=== PATIENT | male | born 1980 | race Two or more races ===

== ENCOUNTER 2024-07-03 22:25 | Emergency (ER) | payer OTHER ==
[~2024-07-03] VITALS: Ht 175.3 cm; Wt 75.0 kg
--- NOTE | 2024-07-04 01:37 | ED.PDOC ---
SOB-HPI HPI Comments Pt BIBA for cough, fatigue, runny nose and body pain when coughing. Denies ayone sick at home. Denies SOB, dizziness, chest pain,blurred vision. VSS. NKDA. Denies PMH. Last dose of Tylenol 1000mg at 1830. Chief Complaint: Flu like Time Seen by MD: 23:23 Reviewed notes: Nurses Notes, Medications, Allergies Information Source: Patient Mode of Arrival: EMS Past Medical History PAST MEDICAL HISTORY: Denies Surgical History: Denies all surgeries Family History Family History: Reviewed,noncontributory to illness Social History Smoker: Non-Smoker Alcohol: Denies ETOH Use Drugs: Denies Drug Use Constitutional: reports: fever; denies: chills, diaphoresis, fatigue, malaise, sweats, weakness, others EENTM: denies: blurred vision, double vision, ear bleeding, ear discharge, ear drainage, ear pain, ear ringing, eye pain, eye redness, hearing loss, mouth pain, mouth swelling, nasal discharge, nose bleeding, nose congestion, nose pain, photophobia, tearing, throat pain, throat swelling, voice changes, others Respiratory: reports: cough; denies: hemoptysis, orthopnea, SOB at rest, shortness of breath, SOB with excertion, stridor, wheezing, others Cardiovascular: denies: chest pain, dizzy spells, diaphoresis, Dyspnea on exertion, edema, irregular heart beat, left arm pain, lightheadedness, palpitations, PND, syncope, others Gastrointestinal: denies: abdomen distended, abdominal pain, blood streaked bowels, constipated, diarrhea, dysphagia, difficulty swallowing, hematemesis, melena, nausea, poor appetite, poor fluid intake, rectal bleeding, rectal pain, vomiting, others Genitourinary: denies: burning, dysuria, flank pain, frequency, hematuria, incontinence, penile discharge, penile sore, pain, testicle pain, testicle swelling, urgency, others Neurological: denies: dizziness, fainting, headache, left sided numbness, left sided weakness, numbness, paresthesia, pre-existing deficit, right sided numbness, right sided weakness, seizure, speech problems, tingling, tremors, weakness, others Musculoskeletal: reports: back pain (Pain with coughing); denies: gout, joint pain, joint swelling, muscle pain, muscle stiffness, neck pain, others Integumetry: denies: bruises, change in color, change in hair/nails, dryness, laceration, lesions, lumps, rash, wounds, others Allergic/Immunocompromised: denies: Difficulty Healing, Frequent Infections, Hives, Itching, others Hematologic/Lymphatic: denies: anemia, blood clots, easy bleeding, easy bruising, swollen glands, others Endocrine: denies: excessive hunger, excessive sweating, excessive thirst, excessive urination, flushing, intolerance to cold, intolerance to heat, unexplained weight gain, unexplained weight loss, others Psychiatric: denies: anxiety, bipolar disorder, depression, hopeless, panic disorder, schizophrenia, sleepless, suicidal, others Physical Exam General Appearance: No Apparent Distress, Normal HEENT: Normal ENT Inspection, Pharynx Normal, TMs Normal Neck: Full Range of Motion, Non-Tender Respiratory: Chest Non-Tender, Decreased Breath Sounds, No Accessory Muscle Use, No Respiratory Distress Cardiovascular: No Edema, No JVD, No Murmur, No Gallop, Normal Peripheral Pulses, Regular Rate/Rhythm Breast Exam: Deferred Gastrointestinal: No Organomegaly, Non Tender, No Pulsatile Mass, Normal Bowel Sounds, Soft Genitalia: Deferred Pelvic: Deferred Rectal: Deferred Extremities: Normal capillary refill, Normal inspection, Normal range of motion, Non-tender, No pedal edema Musculoskeletal : Apperance: Normal Neurologic: Alert, maritime guard II-XII nml as Tested, No Motor Deficits, Normal Affect, Normal Mood, No Sensory Deficits Cerebellar Function: Normal Reflexes: Normal Skin: Dry, Normal Color, Warm Lymphatic: No Adenopathy Was a procedure done? Was a procedure done?: No Differential Dx Differential Diagnosis: Pneumonia, URI X-Ray, Labs, Meds, VS Vital Signs Date Time Temp Pulse Resp B/P (MAP) Pulse Ox O2 Delivery O2 Flow Rate FiO2 07/04/24 04:43 63 12 133/62 07/04/24 04:18 74 16 146/88 07/04/24 03:55 74 16 97 Room Air* 0 21 07/04/24 03:55 98.5 74 16 146/88 (107) 97 98.5 07/04/24 01:06 98.4 79 16 123/94 (104) 98 98.4 07/03/24 22:28 98.4 97 14 120/84 (96) 98 98.4 Current Medications Medications (Trade) Dose Ordered Sig/Patrick Route Start Time Stop Time Status Last Admin Ceftriaxone Sodium 50 ml @ 100 mls/hr ONCE ONCE IV 07/04/24 03:45 07/04/24 04:14 DC 07/04/24 04:05 Morphine Sulfate 1 mg ONCE ONCE IV 07/04/24 04:15 07/04/24 04:16 DC 07/04/24 04:18 X-Ray, Labs, Meds, VS Comment Chest x-ray shows questionable upper-mid lobe bilateral small patchy infiltrates. Radiologist read shows no acute or chronic pulmonary findings. Patient with decreased breath sounds low-grade fever we will treat for pneumonia. Patient given Rocephin IV 1 g and morphine 1 mg and Toradol 30 mg IV reports improvement in pain requesting discharge at this time. Script trial of azithromycin and Medrol Dosepak. Advised to follow up with his PCP in 2 days for re-evaluation. Advised to rest increase p.o. fluids with electrolytes [id number] Tylenol or Motrin as needed for the pain or fever per labeled dosing instructions. Advised on ER return precautions patient indicates understanding and agrees with discharge plan of care. Time of 1ST Reevaluation: 01:36 Reevaluation 1ST: Unchanged Time of 2ND Reevaluation: 04:24 Reevaluation 2ND: Improved Patient Education/Counseling: Diagnosis, Treatment, Prognosis, Need For Follow Up Family Education/Counseling: No Family Present Departure 1 Departure Time of Disposition: 04:24 Impression: Primary Impression: Lower respiratory infection (e.g., bronchitis, pneumonia, pneumonitis, pulmonitis) Disposition: 01 HOME / SELF CARE / HOMELESS Condition: Stable e-Prescriptions Methylprednisolone (Medrol Dosepak) 4 Mg Jabari 4 MG PO UD for 6 Days, #21 TAB UAD Prov: ROSALINA KOVACS [employer] 07/04/24 Azithromycin (Azithromycin) 250 Mg Tab 250 MG PO DAILY MDD 500 for 5 Days, #6 TAB 0 Refills 2 TABLETS ORALLY ON DAY ONE, THEN 1 TABLET ORALLY DAILY FOR 4 DAYS Prov: ROSALINA KOVACS 07/04/24 Discharged With: Self Critical Care Note Critical Care Time?: No Stability Stability form required: No Heart Score Heart Score: Heart Score Response (Comments) Value History N/A 0 EKG N/A 0 Age <45 0 Risk Factors N/A 0 Troponin N/A 0 Total 0 ROSALINA KOVACS [facility] July 04, 2024 01:36
[2024-07-04] MEDS: KETOROLAC TROMETH 30 MG/ML 1ML VIAL IV ONE (01:45)
[2024-07-04] MEDS ORDERED: KETOROLAC TROMETH 60MG/2ML VIAL IM ONE (01:45)
[2024-07-04 03:55] VITALS: PULSE 74; RESP 16; TEMP 98.5; O2SAT 97
[2024-07-04] MEDS: cefTRIAXone 1GM/50ML D5W 50 ML IV ONE (04:05)
--- NOTE | 2024-07-04 04:11 | DVH ---
CHEST RADIOGRAPH Indication: CHEST PAIN Technique: Single frontal view of the chest was obtained Comparison: None FINDINGS: Lines and Tubes: None Lungs: Clear Pleura: No effusion. No pneumothorax. Cardiomediastinal contours: Unremarkable Bones: Unremarkable IMPRESSION: 1. No acute cardiopulmonary disease.
[2024-07-04] MEDS: MORPHINE SULFATE INJ 2 MG/ml SYRG IV ONE (04:18)
[2024-07-04] MEDS ORDERED: AZIT-43 PO (04:27)
[2024-07-04] MEDS ORDERED: METH4PAK PO (04:27)
[2024-07-04 04:43] VITALS: BP 133/62; PULSE 63; RESP 12
== END 2024-07-04 04:48 | disposition home or self-care (01) ==
LOC: EDBD 22:25 → ER 22:25
DX: J22 Unspecified acute lower respiratory infection (principal)
CPT/HCPCS: 71046; 96365; 96375; 99285; J0696; J1885; J2270